=== PATIENT | male | born 1965 ===

== ENCOUNTER 2022-01-04 19:53 | Emergency (ER) | payer OTHER ==
[2022-01-04] MEDS ORDERED: oxyCODONE /ACETAMINOPHEN 5-325MG TAB PO ONE (22:23)
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
--- NOTE | 2022-01-04 23:00 | XRay Report ---
CHEST 2 VIEWS INDICATION / CLINICAL INFORMATION: wheeze. COMPARISON: None available. FINDINGS: SUPPORT DEVICES: None. HEART / MEDIASTINUM: No significant abnormality. LUNGS / PLEURA: No significant pulmonary or pleural abnormality. No pneumothorax. ADDITIONAL FINDINGS: Scoliotic curvature the spine IMPRESSION: 1. No acute findings. Cervical spine 4 views INDICATION: Neck pain FINDINGS: Alignment appears normal. No prevertebral soft tissue swelling is seen. Odontoid appears no rmal. Limited visualization of the cervicothoracic junction Signer Name: Jose Alejandro Sorensen MD Signed: 01/04/2022 10:56 PM Workstation Name: [id number]
[2022-01-05 02:33] VITALS: BP 154/109
== END 2022-01-05 01:05 | disposition home or self-care (01) ==
LOC: ED 19:53
DX: M54.2 Cervicalgia (principal); R07.89 Other chest pain; V87.7XXA Person injured in collision between other specified motor vehicles (traffic), initial encounter; Y93.89 Activity, other specified; Y92.488 Other paved roadways as the place of occurrence of the external cause; Y99.8 Other external cause status
CPT/HCPCS: 71046; 72040; 99283